=== PATIENT | female | born 1980 | race Hispanic/Latino ===

== ENCOUNTER 2020-09-18 20:04 | Emergency (ER) | payer OTHER, SELFPAY ==
[2020-09-18 23:02] LABS: Absolute Lymphocytes (CBC) 4.2 K/uL (0.7-4.9); Basophils % 1.2 % (0-1.3); Hematocrit 41.8 % (36.0-45.0); Lymphocytes % 36.9 % (15.3-44.8); MPV 8.4 fL (7.6-11.3); Protime INR 0.96; RBC Red Blood Cell Count 4.43 M/uL (3.86-4.86)
[2020-09-18 23:35] LABS: Urine Blood 2+ (NEG); Urine Glucose NEGATIVE (NEG); Urine Protein NEGATIVE (NEG); Urine Specific Gravity >1.030 (1.005-1.030); Urine pH 5.5 (5.0-7.0)
[2020-09-18 23:44] LABS: ALT/SGPT 26 U/L (12-78); AST/SGOT 14 U/L (15-37); Albumin 3.8 g/dL (3.4-5.0); Alkaline Phosphatase 79 U/L (45-117); BUN Blood Urea Nitrogen 14 mg/dL (7-18); Bicarbonate 29 mmol/L (21-32); Bilirubin Direct < 0.1 mg/dL (0-0.2); Bilirubin Total 0.3 mg/dL (0.2-1.0); Glucose Level 100 mg/dL (74-106); Magnesium 2.2 mg/dL (1.8-2.4); NT PRO-BNP 100 pg/mL (<125); Potassium 3.7 mmol/L (3.5-5.1); Protein, Total 7.9 g/dL (6.4-8.2); Sodium Level 143 mmol/L (136-145); Troponin (Emerg Dept Use Only) < 0.02 ng/mL (0.0-0.045)
[2020-09-19 00:05] LABS: T3 Free 2.82 pg/mL (2.18-3.98)
[2020-09-19] MEDS ORDERED: METOCLOPRAMIDE 10 MG/2mL INJ ONE (00:51)
[2020-09-19] MEDS ORDERED: KETOROLAC 30 MG/ML INJ ONE (00:51)
[2020-09-19 01:15] LABS: Barbiturates NEGATIVE (NEGATIVE); Benzodiazepines NEGATIVE (NEGATIVE); Cocaine NEGATIVE (NEGATIVE); METHAMPHETAM NEGATIVE (NEGATIVE); Methadone NEGATIVE (NEGATIVE); Opiates NEGATIVE (NEGATIVE); Phencyclidine NEGATIVE (NEGATIVE); THC Cannibis NEGATIVE (NEGATIVE)
--- NOTE | 2020-09-19 05:28 | ER ---
Nurse's Notes [facility] Name: Lola Rich Age: 40 yrs Sex: Female : 1980 Arrival Date: 09/18/2020 Time: 20:09 Bed 20 Private MD: Diagnosis: Palpitations;Other chest pain;Headache Presentation: 09/18 20:37 Chief complaint: Patient states: Chest heaviness x 1 week. Sharp chest pain since ca1 yesterday radiates to the L collarbone. Headache x 3 days. Today, started feeling dizzy. Denies cough. Coronavirus screen: Client denies travel out of the [place] in the last 14 days. At this time, the client does not indicate any symptoms associated with coronavirus-19. Ebola Screen: Patient negative for fever greater than or equal to 101.5 degrees Fahrenheit, and additional compatible Ebola Virus Disease symptoms Patient denies exposure to infectious person. Patient denies travel to an Ebola-affected area in the 21 days before illness onset. No symptoms or risks identified at this time. Initial Sepsis Screen: Does the patient meet any 2 criteria? No. Patient's initial sepsis screen is negative. Does the patient have a suspected source of infection? No. Patient's initial sepsis screen is negative. Risk Assessment: Do you want to hurt yourself or someone else? Patient reports no desire to harm self or others. Onset of symptoms was September 18, 2020. 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 - Social history:: Smoking status: Patient reports the use of cigarette tobacco products, smokes one-half pack cigarettes per day. Screenin:08 Abuse screen: Denies threats or abuse. Nutritional screening: No deficits noted. ll2 Tuberculosis screening: No symptoms or risk factors identified. Fall Risk None identified. Assessment: 22:05 General: Appears in no apparent distress. Behavior is calm, cooperative, appropriate ll2 for age. Pain: Complains of pain in chest. Neuro: Level of Consciousness is awake, alert, obeys commands, Oriented to person, place, time, situation. Cardiovascular: Patient's skin is warm and dry. Respiratory: Airway is patent Respiratory effort is even, unlabored, Respiratory pattern is regular, symmetrical. GI: No signs and/or symptoms were reported involving the gastrointestinal system. : No signs and/or symptoms were reported regarding the genitourinary system. EENT: No signs and/or symptoms were reported regarding the EENT system. Derm: Skin is intact, is healthy with good turgor, Skin is dry, Skin is pink, warm \T\ dry. Musculoskeletal: Circulation, motion, and sensation intact. Range of motion: intact in all extremities. 23:05 Reassessment: Patient and/or family updated on plan of care and expected duration. Pain ll2 level reassessed. Patient is alert, oriented x 3, equal unlabored respirations, skin warm/dry/pink. 09/19 00:05 Reassessment: Patient and/or family updated on plan of care and expected duration. Pain ll2 level reassessed. Patient is alert, oriented x 3, equal unlabored respirations, skin warm/dry/pink. Vital Signs: 02 20:37 BP 107 / 80; Pulse 72; Resp 16 S; Temp 97(TE); Pulse Ox 98% on R/A; Weight 97.52 kg ca1 (R); Height 5 ft. 2 in. (157.48 cm) (R); Pain 3/10; 22:30 BP 137 / 63; Pulse 115; Resp 18; Pulse Ox 94% on R/A; ll2 23:30 BP 143 / 74; Pulse 96; Resp 18; Pulse Ox 95% on R/A; ll2 20:37 Body Mass Index 39.32 (97.52 kg, 157.48 cm) ca1 ED Course: 20:09 Patient arrived in ED. am2 20:39 Triage completed. ca1 20:40 Arm band placed on right wrist. ca1 22:04 Joni Pearson PA is PHCP. cp 22:04 Óscar Stewart MD is Attending Physician. cp 22:08 Patient has correct armband on for positive identification. Placed in gown. Bed in low ll2 position. Call light in reach. Side rails up X 1. Pulse ox on. NIBP on. 22:08 No provider procedures requiring assistance completed. Inserted saline lock: 20 gauge ll2 in right antecubital area, using aseptic technique. Blood collected. 22:22 Autumn Hatch, RN is Primary Nurse. ll2 22:44 XRAY Chest (1 view) In Process Unspecified. EDMS 09/19 01:12 CT Head Brain wo Cont In Process Unspecified. EDMS 05:28 Portillo Funes MD is Referral Physician. 7 Administered Medications: 00:40 Drug: TORadol - Ketorolac 15 mg Route: IVP; Site: right antecubital; ll2 01:40 Follow up: Response: No adverse reaction ll2 00:40 Drug: Reglan 10 mg Route: IVP; Site: right antecubital; ll2 01:40 Follow up: Response: No adverse reaction ll2 Outcome: 05:28 Discharge ordered by . jonnie 05:59 Patient left the ED. ll2 Signatures: Dispatcher [employer] EDKS Joni Pearson PA PA cp Moreno, Amanda am2 Duyen Dick RN RN ca1 Autumn Hatch RN RN ll2 Óscar Stewart MD MD [facility]
--- NOTE | 2020-09-19 05:28 | EDPHYS ---
Physician Documentation [facility] Name: Lola Rich Age: 40 yrs Sex: Female : 1980 Arrival Date: 09/18/2020 Time: 20:09 Bed 20 Private MD: ED Physician Óscar Stewart HPI: 09/18 22:10 This 40 yrs old Female presents to ER via Ambulatory with complaints of cp Weakness, Chest Pain - heaviness. 22:10 The patient or guardian reports chest pain that is located primarily in the anterior cp chest wall, left. 22:10 Onset: 1 week(s) ago. The pain radiates to the left shoulder. cp 22:10 Associated signs and symptoms: Pertinent positives: headache, palpitations, Pertinent cp negatives: abdominal pain, cough, diaphoresis, lower extremity pain, lower extremity swelling, lightheadedness, shortness of breath, syncope, vomiting. The chest pain is described as started as heaviness times 1 week, now sharp. Severity of pain: in the emergency department the pain is unchanged despite home interventions. 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 - Social history:: Smoking status: Patient reports the use of cigarette tobacco products, smokes one-half pack cigarettes per day. ROS: 22:15 Constitutional: Negative for body aches, chills, fever, poor PO intake. cp 22:15 Eyes: Negative for injury, pain, redness, and discharge. cp 22:15 Cardiovascular: Positive for chest pain, palpitations, Negative for edema. 22:15 Respiratory: Negative for cough, shortness of breath, wheezing. 22:15 Abdomen/GI: Negative for abdominal pain, nausea, vomiting, and diarrhea. 22:15 Back: Negative for pain at rest, pain with movement. cp 22:15 Skin: Negative for cellulitis, rash. 22:15 Neuro: Positive for headache, Negative for altered mental status, numbness, syncope. 22:15 Neck: Positive for radiating pain, Negative for injury or acute deformity, stiffness. cp 22:15 All other systems are negative. cp Exam: 22:05 ECG was reviewed by the Attending Physician. cp 22:20 Constitutional: The patient appears in no acute distress, alert, awake, cp non-diaphoretic, non-toxic, well developed, well nourished, obese. 22:20 Head/Face: Normocephalic, atraumatic. cp 22:20 Eyes: Periorbital structures: appear normal, Conjunctiva: normal, no exudate, no injection, Sclera: no appreciated abnormality, Lids and lashes: appear normal, bilaterally. 22:20 ENT: External ear(s): are unremarkable, Nose: is normal, Mouth: Lips: moist, Oral mucosa: moist, Posterior pharynx: is normal, airway is patent, no erythema, no exudate. 22:20 Neck: ROM/movement: is normal, is supple, no meningismus, no nuchal rigidity. 22:20 Chest/axilla: Inspection: normal, Palpation: is normal, no crepitus, no tenderness. 22:20 Cardiovascular: Rate: normal, Rhythm: regular, Heart sounds: murmur, not appreciated, Edema: is not appreciated, JVD: is not appreciated. 22:20 Respiratory: the patient does not display signs of respiratory distress, Respirations: normal, no use of accessory muscles, no retractions, labored breathing, is not present, Breath sounds: are clear throughout, no decreased breath sounds, no stridor, no wheezing. 22:20 Abdomen/GI: Inspection: abdomen appears normal, Palpation: abdomen is soft and non-tender, in all quadrants. 22:20 Back: pain, that is mild, of the left scapular area, right scapular area, left subscapular area and right subscapular area, ROM is normal. 22:20 Skin: no rash present. 22:20 Neuro: Orientation: to person, place \T\ time. Mentation: is normal, Cerebellar function: is grossly normal, Motor: moves all fours, strength is normal, Sensation: is normal. Vital Signs: 20:37 BP 107 / 80; Pulse 72; Resp 16 S; Temp 97(TE); Pulse Ox 98% on R/A; Weight 97.52 kg ca1 (R); Height 5 ft. 2 in. (157.48 cm) (R); Pain 3/10; 22:30 BP 137 / 63; Pulse 115; Resp 18; Pulse Ox 94% on R/A; ll2 23:30 BP 143 / 74; Pulse 96; Resp 18; Pulse Ox 95% on R/A; ll2 20:37 Body Mass Index 39.32 (97.52 kg, 157.48 cm) ca1 MDM: 22:07 Patient medically screened. cp 23:00 Differential diagnosis: abnormal EKG, acute myocardial infarction, acute pericarditis, cp chest wall pain, cholecystitis, Cholelithiasis costochondritis, myocarditis, pericarditis, pleurisy, pneumonia, pneumothorax, pulmonary embolus, stable angina, unstable angina. 09/19 00:32 Test interpretation: by ED physician or midlevel provider: ECG, chest xray negative for cp infiltrates. 02:00 Data reviewed: vital signs, nurses notes, lab test result(s), EKG, radiologic studies, cp CT scan, plain films, I have discussed the patient's presentation/case with the attending Emergency Department Physician; and as a result, I will repeat troponin and if negative discharge patient to home with recommendation to f/u with cardiology for Holter monitor. Patient resting comfortably in exam room. 02:00 Counseling: I had a detailed discussion with the patient and/or guardian regarding: the cp historical points, exam findings, and any diagnostic results supporting the discharge/admit diagnosis, lab results, radiology results, the need for outpatient follow up, a physician practice market manager, to return to the emergency department if symptoms worsen or persist or if there are any questions or concerns that arise at home. 09/18 22:18 Order name: Basic Metabolic Panel cp 09/18 22:18 Order name: CBC with Diff cp 09/18 22:18 Order name: LFT's cp 09/18 22:18 Order name: Magnesium cp 09/18 22:18 Order name: NT PRO-BNP; Complete Time: 00:19 cp 09/18 22:18 Order name: PT-INR; Complete Time: 00:19 cp 09/18 22:18 Order name: Troponin (emerg Dept Use Only); Complete Time: 00:19 cp 09/19 00:19 Interpretation: Within normal limits: TROPED < 0.02. cp 09/18 22:19 Order name: Basic Metabolic Panel; Complete Time: 00:19 EDMS 09/19 00:19 Interpretation: Normal except: CL 110. cp / 22:19 Order name: CBC with Automated Diff; Complete Time: 23:05 EDMS 09/18 23:05 Interpretation: Normal except: WBC 11.30. cp / 22:19 Order name: Liver (Hepatic) Function; Complete Time: 00:19 EDMS 02 00:19 Interpretation: Normal except: GLOB 4.1; A/G 0.9. cp 09/18 22:19 Order name: Magnesium; Complete Time: 00:19 EDMS 09/18 22:19 Order name: TSH; Complete Time: 00:19 cp 09/19 00:20 Interpretation: Within normal limits: TSH 3.490. cp 09/18 22:19 Order name: T3 Free; Complete Time: 00:19 cp 09/19 00:20 Interpretation: Within normal limits: T3F 2.82. cp 09/18 20:42 Order name: EKG; Complete Time: 20:42 ca1 09/18 20:42 Order name: EKG - Nurse/Tech; Complete Time: 20:42 ca1 09/18 22:18 Order name: XRAY Chest (1 view) cp 09/18 22:18 Order name: Cardiac monitoring; Complete Time: 23:00 cp 09/18 22:18 Order name: IV Saline Lock; Complete Time: 23:00 cp 09/18 22:18 Order name: Labs collected and sent; Complete Time: 23:00 cp 09/18 22:18 Order name: O2 Per Protocol; Complete Time: 23:00 cp 09/18 22:18 Order name: O2 Sat Monitoring; Complete Time: 23:00 cp 09/18 22:19 Order name: UDS; Complete Time: 01:55 cp 09/18 23:15 Order name: Urine Dipstick--Ancillary (enter results); Complete Time: 00:19 tt3 09/18 23:15 Order name: Urine --Ancillary (enter results); Complete Time: 00:19 tt3 09/19 00:21 Order name: CT Head Brain wo Cont cp 09/19 00:37 Order name: SARS-COV-2 RT PCR; Complete Time: 01:55 EDMS 09/19 01:30 Order name: Troponin I; Complete Time: 05:20 cp 09/18 22:19 Order name: Urine Test (obtain specimen); Complete Time: 23:15 cp 09/18 22:19 Order name: Urine Dipstick-Ancillary (obtain specimen); Complete Time: 23:15 cp EC/06 22:05 Rate is 76 beats/min. Rhythm is regular. W[place] interval is normal. QRS interval is normal. cp QT interval is normal. T waves are Flattened in lead aVL. Interpreted by me. Reviewed by me. Administered Medications: 09/19 00:40 Drug: TORadol - Ketorolac 15 mg Route: IVP; Site: right antecubital; ll2 01:40 Follow up: Response: No adverse reaction ll2 00:40 Drug: Reglan 10 mg Route: IVP; Site: right antecubital; ll2 01:40 Follow up: Response: No adverse reaction 2 Disposition: 09/20 05:12 Co-signature as Attending Physician, Óscar Stewart MD. [email or web address] Disposition: 09/19/20 05:28 Discharged to Home. Impression: Palpitations, Other chest pain, Headache. - Condition is Stable. - Discharge Instructions: Nonspecific Chest Pain, Migraine Headache, Palpitations, Aspirin and Your Heart. - Prescriptions for Naprosyn 500 mg Oral Tablet - take 1 tablet by ORAL route 2 times per day take with food; 20 tablet. - Medication Reconciliation Form, Thank You Letter, Antibiotic Education, Prescription Opioid Use form. - Follow up: Portillo Funes; When: 2 - 3 days; Reason: Recheck today's complaints. - Problem is new. - Symptoms have improved. Signatures: Dispatcher [employer] [facility] Joni Pearson PA PA cp Acob, Cheryl, RN RN ca1 Autumn Hatch RN RN 2 Óscar Stewart MD MD [email or web address] Corrections: (The following items were deleted from the chart) 09/18 23:14 22:19 CORONAVIRUS+MR.LAB.BRZ ordered. [facility] 09/19 05:59 05:28 09/19/2020 05:28 Discharged to Home. Impression: Palpitations; Other chest pain; ll2 Headache. Condition is Stable. Discharge Instructions: Nonspecific Chest Pain, Migraine Headache, Palpitations, Aspirin and Your Heart. Prescriptions for Naprosyn 500 mg Oral Tablet - take 1 tablet by ORAL route 2 times per day take with food; 20 tablet. and Forms are Medication Reconciliation Form, Thank You Letter, Antibiotic Education, Prescription Opioid Use. Follow up: Portillo Funes; When: 2 - 3 days; Reason: Recheck today's complaints. Problem is new. Symptoms have improved. [email or web address] 22:43 09/18 22:15 All other systems are negative, cp cp
[2020-09-19 06:04] VITALS: TEMP 97
[2020-09-19 06:07] VITALS: BP 143/74; O2SAT 95
--- NOTE | 2020-09-19 12:28 | RAD REPORT ---
EXAM DESCRIPTION: RAD - Chest Single View - 09/18/2020 10:44 pm CLINICAL HISTORY: CHEST PAIN Chest pain. COMPARISON: No comparisons FINDINGS: Portable technique limits examination quality. The lungs are grossly clear. The heart is normal in size. No displaced fractures. IMPRESSION: No acute intrathoracic process suspected.
--- NOTE | 2020-09-20 11:39 | RAD REPORT ---
EXAM DESCRIPTION: CT of the head without contrast CLINICAL HISTORY: HEADACHE COMPARISON: None available TECHNIQUE: Axial CT of the head obtained from the skull apex to the skull base without contrast. FINDINGS: No acute intracranial hemorrhage identified. No mass, mass effect, shift of the midline, a bnormal extra-axial fluid collection or CT evidence of acute ischemic change identified. The ventricu lar system is unremarkable. No acute abnormalities of the supratentorial white matter, basal gangli a, cerebellum, or brainstem. The visualized paranasal sinuses and the mastoid air cells are relatively well aerated. No skull fr acture identified. Visualized orbits and globes are unremarkable. IMPRESSION: 1. No acute intracranial abnormality identified. This exam was performed according to our departmental dose-optimization program, which includes autom ated exposure control, adjustment of the mA and/or kV according to patient size and/or use of iterati ve reconstruction technique. Electronically signed by: Lonnie Martinez 09/19/2020 1:26 AM SCHOOL SUPERINTENDENT Due to temporary technical issues with the PACS/Fluency reporting system, reports are being signed by the in house radiologist without review as a courtesy to ensure prompt reporting. The interpreting r adiologist is fully responsible for the content of the report.
== END 2020-09-19 05:59 | disposition home or self-care (01) ==
LOC: ER 20:04
DX: R00.2 Palpitations (principal); R51.9 Headache, unspecified; F17.210 Nicotine dependence, cigarettes, uncomplicated; Z20.822 Contact with and (suspected) exposure to COVID-19; Z88.6 Allergy status to analgesic agent
CPT/HCPCS: 93005; 85025; 80048; 36415; 83735; 81025; 85610; 80076; 80307 ×8; 84443; 81003; 84484 ×2; 84481; 83880; 70450; 71045; 96375; 96374; 99284; U0003; J2765

== ENCOUNTER 2022-12-11 11:51 | Emergency (ER) | payer OTHER ==
--- OUTSIDE RECORDS SUMMARY | 2022-12-11 11:56 | XMS REPORT | Continuity of Care Document ---
:1980 Author Organization [facility] t Address [address] [place] [address] [place] [id number] Care Team Providers Name Role Phone Meghan Dudley Primary Care Physician Gali Castañeda MD Attending Clinician Unknown, Attending Attending Clinician Unavailable GALI CASTAÑEDA Attending Clinician Unavailable Doctor Unassigned, Calvin Attending Clinician Unavailable NEETU BONILLA Attending Clinician Unavailable NEETU BONILLA Attending Clinician Unavailable Lab, Ang - Db Attending Clinician Unavailable Mayte Puri Attending Clinician MAYTE BORRERO Attending Clinician Unavailable James Hooker MD Attending Clinician Lanette Perdomo Attending Clinician LANETTE GREGORY Attending Clinician Unavailable NEETU BONILLA Admitting Clinician Unavailable Payers Payer Name Policy Type Policy Number Effective Date Expiration Date S ource Problems Condition Condition Condition Status Onset Resolution Last Treating Co mments Source Name Details Category Date Date Treatment Clinician Date No known No known Disease Unive rs active active ity of problems problems [place] [facility] [place] Allergies, Adverse Reactions, Alerts Allergy Allergy Status Severity Reaction(s) Onset Inactive Treating Comm ents Source Name Type Date Date Clinician Acetamin Propensi Active Unknown - Uni vers ophen ty to See comments 03-02 ity of adverse 00:00: [place] reaction 00 Medical s Branch ACETAMIN DRUG Active Unknown-Cmnt Un nima OPHEN INGREDI 7-21 ity of 00:00: [place] [address] Medical Branch NO KNOWN Drug Active Univers ALLERGIE Class ity of S [facility] Social History Social Habit Start Date Stop Date Quantity Comments Source History of tobacco Cigarette Smoker University of use [facility] Exposure to 2022-11-05 2022-11-15 Not sure [facility] SARS-CoV-2 (event) 00:00:00 09:24:00 [facility] Alcohol intake 2022-11-15 2022-11-15 .43 /d University 00:00:00 00:00:00 [facility] Cigarette 2022-06-07 2022-06-07 University of pack-years 00:00:00 00:00:00 [facility] Tobacco use and 2022-06-07 2022-06-07 Smokeless Universit y of exposure 00:00:00 00:00:00 tobacco non-user [facility] Cigarettes smoked 2022-06-07 2022-06-07 Univers ity of current (pack per 00:00:00 00:00:00 [facility] ) - Reported Branch Sex Ass[birth year] At [birth year] Universit y of 00:00:00 00:00:00 [facility] Smoking Status Start Date Stop Date Source Unknown if ever smoked Universit y of [facility] Smokes tobacco daily 2022-06-07 00:00:00 Univers ity of [facility] Never smoker [facility] Medications Ordered Filled Start Stop Current Ordering Indication Dosage Frequency Signature Comments Components Source Medication Medication Date Date Medication? Clinician (SIG) Name Name bromphenira Yes [id number] 10mL Take 10 mL Univers mine-pseudo 4-05 by mouth 4 it y of ephedrine-D 00:00[place] ([place] (BROMF[place] 00 times Medical DM) 2-30-10 daily as Bran ch mg/5 mL needed for syrup Congestion /Allergies . benzonatate Yes [id number] 200mg Take 2 Univers 100 mg 4-05 capsules ity of capsule 00:00: by mouth [place] [address] every 8 Medical (eight) Branch hours as needed for Cough. bromphenira Yes [id number] 10mL Take 10 mL Univers mine-pseudo 4-05 by mouth 4 it y of ephedrine-D 00:00: (four[place] (BROMFED 00 times Medical DM) 2-30-10 daily as Bran ch mg/5 mL needed for syrup Congestion /Allergies . benzonatate Yes [id number] 200mg Take 2 Univers 100 mg 4-05 capsules ity of capsule 00:00: by mouth [place] 00 every 8 Medical (eight) Branch hours as needed for Cough. metroNIDAZO 2021-08- No [id number] 500mg Take 1 Univers LE 500 mg 0-28 11-05 tablet by ity of tablet 00:00: 04:59 mouth [place] 00 :00 every 12 Medical (twelve) Branch hours for 7 days. metroNIDAZO 2021-08- No [id number] 500mg Take 1 Univers LE 500 mg 0-28 11-05 tablet by ity of tablet 00:00: 04:59 mouth [place] 00 :00 every 12 Medical (twelve) Branch hours for 7 days. mupirocin 2 2021-08 Yes [id number] Apply to Univers % ointment 0-26 area(s) 3 ity of 00:00: (three) [place] 00 times Medical daily. Branch norethindro 2021-08 Yes [id number] .35mg Take 1 Univers ne (ORTHO 0-26 tablet by ity o f MICRONOR) 00:00: mouth [place] 0.35 mg 00 the Medical tablet morning. Branch mupirocin 2 2021-08 Yes [id number] Apply to Univers % ointment 0-26 area(s) 3 ity of 00:00: (three) [place] 00 times Medical daily. Branch norethindro 2021-08 Yes [id number] .35mg Take 1 Univers ne (ORTHO 0-26 tablet by ity o f MICRONOR) 00:00: [place] 0.35 mg 00 the Medical tablet morning. Branch mupirocin 2 2021-08 Yes [id number] Apply to Univers % ointment 0-26 area(s) 3 ity of 00:00: (three) [place] 00 times Medical daily. Branch norethindro 2021-08 Yes [id number] .35mg Take 1 Univers ne (ORTHO 0-26 tablet by ity o f MICRONOR) 00:00: mouth [place] 0.35 mg 00 the Medical tablet morning. Branch mupirocin 2 2021-08 Yes [id number] Apply to Univers % ointment 0-26 area(s) 3 ity of 00:00: (three) [place] 00 times Medical daily. Branch norethindro 2021-08 Yes [id number] .35mg Take 1 Univers ne (ORTHO 0-26 tablet by ity o f MICRONOR) 00:00: mouth [place] 0.35 mg 00 the Medical tablet morning. Branch mupirocin 2 2021-08 Yes [id number] Apply to Univers % ointment 0-26 area(s) 3 ity of 00:00: (three) [place] 00 times Medical daily. Branch norethindro 2021-08 Yes [id number] .35mg Take 1 Univers ne (ORTHO 0-26 tablet by ity o f MICRONOR) 00:00: mouth [place] 0.35 mg 00 the Medical tablet morning. Branch mupirocin 2 2021-08 Yes [id number] Apply to Univers % ointment 0-26 area(s) 3 ity of 00:00: (three) [place] 00 times Medical daily. Branch utethindro 2021-08 Yes [id number] .35mg Take 1 Univers ne (ORTHO 0-26 tablet by ity o f MICRONOR) 00:00: mouth [place] 0.35 mg 00 the Medical tablet morning. Branch mupirocin 2 2021-08 Yes [id number] Apply to Univers % ointment 0-26 area(s) 3 ity of 00:00: (three) [place] 00 times Medical daily. Branch utethindro 2021-08 Yes [id number] .35mg Take 1 Univers ne (ORTHO 0-26 tablet by ity o f MICRONOR) 00:00: mouth [place] 0.35 mg 00 the Medical tablet morning. Branch mupirocin 2 2021-08 Yes [id number] Apply to Univers % ointment 0-26 area(s) 3 ity of 00:00: (three) [place] 00 times Medical daily. Branch norethindro 2021-08 Yes [id number] .35mg Take 1 Univers ne (ORTHO 0-26 tablet by ity o f MICRONOR) 00:00: mouth [place] 0.35 mg 00 the Medical tablet morning. Branch mupirocin 2 2021-08 Yes [id number] Apply to Univers % ointment 0-26 area(s) 3 ity of 00:00: (three) [place] 00 times Medical daily. Branch norethindro 2021-08 Yes [id number] .35mg Take 1 Univers ne (ORTHO 0-26 tablet by ity o f MICRONOR) 00:00: mouth [place] 0.35 mg 00 the Medical tablet morning. Branch ondansetron 2021- No [id number] 4mg U nivers (ZOFRAN-ODT 5-30 05-30 ity of ) 23:00: 21:59 [place] disintegrat 00 :00 Medical ing tablet Branch 4 mg ondansetron 2021- No [id number] 4mg 4 mg, Univers (ZOFRAN-ODT 5-30 05-30 Oral, ity of ) 23:00: 21:59 ONCE, 1 [place] disintegrat 00 :00 dose, On Medi geo ing tablet Mon Branch 4 mg 01/09/22 at 1800, Routine ondansetron Yes [id number] 4mg Take 1 Univers 4 mg 5-30 tablet by ity of disintegrat 00:00: mouth [place] ing tablet 00 every 8 Medica l (eight) Branch hours as needed for Nausea and Vomiting (N/V). ondansetron Yes [id number] 4mg Take 1 Univers 4 mg 5-30 tablet by ity of disintegrat 00:00: mouth [place] ing tablet 00 every 8 Medica l (eight) Branch hours as needed for Nausea and Vomiting (N/V). ondansetron Yes [id number] 4mg Take 1 Univers 4 mg 5-30 tablet by ity of disintegrat 00:00: mouth [place] ing tablet 00 every 8 Medica l (eight) Branch hours as needed for Nausea and Vomiting (N/V). ondansetron Yes [id number] 4mg Take 1 Univers 4 mg 5-30 tablet by ity of disintegrat 00:00: mouth [place] ing tablet 00 every 8 Medica l (eight) Branch hours as needed for Nausea and Vomiting (N/V). ondansetron Yes [id number] 4mg Take 1 Univers 4 mg 5-30 tablet by ity of disintegrat 00:00: mouth [place] ing tablet 00 every 8 Medica l (eight) Branch hours as needed for Nausea and Vomiting (N/V). ondansetron 2021-0 Yes [id number] 4mg Take 1 Univers 4 mg 5-30 tablet by ity of disintegrat 00:00: mouth [place] ing tablet 00 every 8 Medica l (eight) Branch hours as needed for Nausea and Vomiting (N/V). ondansetron 2021-0 Yes [id number] 4mg Take 1 Univers 4 mg 5-30 tablet by ity of disintegrat 00:00: mouth [place] ing tablet 00 every 8 Medica l (eight) Branch hours as needed for Nausea and Vomiting (N/V). ondansetron 2021-0 Yes [id number] 4mg Take 1 Univers 4 mg 5-30 tablet by ity of disintegrat 00:00: mouth [place] ing tablet 00 every 8 Medica l (eight) Branch hours as needed for Nausea and Vomiting (N/V). ondansetron 2021-0 Yes [id number] 4mg Take 1 Univers 4 mg 5-30 tablet by ity of disintegrat 00:00: mouth [place] ing tablet 00 every 8 Medica l (eight) Branch hours as needed for Nausea and Vomiting (N/V). ondansetron 2021-0 Yes [id number] 4mg Take 1 Univers 4 mg 5-30 tablet by ity of disintegrat 00:00: mouth [place] ing tablet 00 every 8 Medica l (eight) Branch hours as needed for Nausea and Vomiting (N/V). ondansetron 2021-0 Yes [id number] 4mg Take 1 Univers 4 mg 5-30 tablet by ity of disintegrat 00:00: mouth [place] ing tablet 00 every 8 Medica l (eight) Branch hours as needed for Nausea and Vomiting (N/V). sulfamethox 2021-0 2021- No [id number] 1{tbl} Take 1 Univers azole-trime 5-30 - tablet by it y of thoprim 00:00: 04:59 mouth 2 [place] (BACTRIM 00 :00 (two) Medical DS) 800-160 times Branch mg per daily for tablet 3 days. cephALEXin 0 2020- No [id number] 500mg Take 1 Univers 500 mg 7-02 03- tablet by ity of tablet 00:00: 04:59 mouth 2 [place] 00 :00 (two) Medical times Branch daily for 7 days. May use capsules Vital Signs Vital Name Observation Time Observation Value Comments Source Systolic blood 2022-11-15 14:32:00 128 mm[Hg] Univer sity of pressure [place] [facility] Diastolic blood 2022-11-15 14:32:00 85 mm[Hg] Unive rsity of pressure [place] [facility] Heart rate 2022-11-15 14:32:00 77 /min Universi ty of [place] [facility] Body temperature 2022-11-15 14:32:00 36.83 Destiny Univ ersity of [place] [facility] Respiratory rate 2022-11-15 14:32:00 17 /min Univ ersity of [place] [facility] Body weight 2022-11-15 14:32:00 97.523 kg Universi ty of [place] [facility] BMI 2022-11-15 14:32:00 39.32 kg/m2 Universi ty of [place] [facility] Oxygen saturation in 2022-11-15 14:32:00 97 /min University of Arterial blood by [place] [facility] geo Pulse oximetry Branch Systolic blood 2022-06-07 13:59:00 126 mm[Hg] Univer sity of pressure [place] [facility] Diastolic blood 2022-06-07 13:59:00 83 mm[Hg] Unive rsity of pressure [place] [facility] Heart rate 2022-06-07 13:59:00 67 /min Universi ty of [place] [facility] Body temperature 2022-06-07 13:59:00 36.72 Destiny Univ ersity of [place] [facility] Respiratory rate 2022-06-07 13:59:00 16 /min Univ ersity of [place] [facility] Body height 2022-06-07 13:59:00 157.5 cm Universi ty of [place] [facility] Body weight 2022-06-07 13:59:00 96.752 kg Universi ty of [place] [facility] BMI 2022-06-07 13:59:00 39.01 kg/m2 Universi ty of [place] [facility] Oxygen saturation in 2022-06-07 13:59:00 96 /min University of Arterial blood by [place] [facility] geo Pulse oximetry Branch Systolic blood 2022-01-09 21:52:00 131 mm[Hg] Univer sity of pressure [place] [facility] Diastolic blood 2022-01-09 21:52:00 83 mm[Hg] Unive rsity of pressure [place] [facility] Heart rate 2022-01-09 21:52:00 74 /min Universi ty of [place] [facility] Body temperature 2022-01-09 21:52:00 36.67 Destiny Univ ersity of [place] [facility] Respiratory rate 2022-01-09 21:52:00 18 /min Univ ersity of [place] [facility] Body height 2022-01-09 21:52:00 157.5 cm Universi ty of [place] [facility] Body weight 2022-01-09 21:52:00 93.895 kg Universi ty of [place] [facility] BMI 2022-01-09 21:52:00 37.86 kg/m2 Universi ty of [place] [facility] Oxygen saturation in 2022-01-09 21:52:00 98 /min University of Arterial blood by [facility] Pulse oximetry Branch Systolic blood 2021-03-02 23:40:00 119 mm[Hg] Univer sity of pressure [place] [facility] Diastolic blood 2021-03-02 23:40:00 71 mm[Hg] Unive rsity of pressure [place] [facility] Heart rate 2021-03-02 23:40:00 77 /min Universi ty of [place] [facility] Body temperature 2021-03-02 23:40:00 37 Destiny [facility] ersity of [place] [facility] Respiratory rate 2021-03-02 23:40:00 16 /min Univ ersity of [place] [facility] Body height 2021-03-02 23:40:00 157.5 cm Universi ty of [place] [facility] Body weight 2021-03-02 23:40:00 95.255 kg Universi ty of [place] [facility] BMI 2021-03-02 23:40:00 38.41 kg/m2 Universi ty of [place] [facility] Oxygen saturation in 2021-03-02 23:40:00 99 /min University of Arterial blood by [facility] Pulse oximetry Branch Procedures Procedure Date / Time Performing Clinician Source Performed POCT SARS-COV-2 ANTIGEN 2022-11-15 14:28:00 Gali Castañeda [facility] (BINAX NOW) Medical Branch [facility] PATIENT FINANCIAL 2022-11-15 14:25:24 Doctor Unassigned, No University [facility] [place] [facility] POLICY Name Medical Branch US PELVIS COMPLETE WITH 2022-06-13 22:31:15 Neetu Bonilla [facility] TRANSVAGINAL [facility] ASSIGNMENT OF BENEFITS 2022-06-07 13:40:46 Doctor Unassigned, No [facility] POCT TEST 2022-06-07 00:00:00 Neetu Bonilla [facility] POCT TEST 2022-01-09 22:02:00 Gali Castañeda [facility] POCT URINALYSIS 2022-01-09 21:52:00 Mayte Borrero [facility] ASSIGNMENT OF BENEFITS 2021-03-02 23:37:08 Doctor Unassigned, No [facility] Encounters Start End Encounter Admission Attending Care Care Encounter Source Date/Time Date/Time Type Type Clinicians Facility Department ID 2022-11-15 2022-11-15 Gali Oliveira [facility] 1.2.840.114 [id number] Univers 09:40:00 09:54:29 Care Unknown, Attending HEALTH 350.1.13.10 ity of [place] 4.2.7.2.686 [place] TANVI?BLEA [id number] [address] MEDICAL OFFICE BUILDING 2022-11-15 2022-11-15 Outpatient R GARRY [facility] [id number] Univers 09:40:00 09:54:29 [facility] 2022-11-15 2022-11-15 Orders Doctor SANDHU 1.2.840.114 [id number] Univers 00:00:00 00:00:00 Only Unassigned, DANTE 350.1.13.10 [facility] 4.2.7.2.686 [place] [id number] [address] 2022-11-15 2022-11-15 Letter Garry [facility] 1.2.840.114 [id number] Univers 00:00:00 00:00:00 (Out) [facility] 350.1.13.10 it y of [place] 4.2.7.2.686 [place] TANVI?BLEA [id number] [address] MEDICAL OFFICE BUILDING 2022-07-13 2022-07-13 Outpatient R NEETU BONILLA [facility] B [id number] Univers 08:57:37 23:59:00 ERIKNEETU BERGMAN itvioletta [facility] 2022-07-13 2022-07-13 [facility] 1.2.840.114 [id number] Univers 08:57:37 23:59:00 Encounter Neetu GUZMAN 350.1.13.10 [facility]y [facility] 4.2.7.2.686 [facility] [id number] [facility] 800 Branch 2022-06-13 2022-06-13 Outpatient R NEETU BONILLA [facility] B [id number] Univers 16:28:56 23:59:00 ERIKNEETU BERGMAN [facility] 2022-06-13 2022-06-13 [facility] 1.2.840.114 [id number] Univers 16:28:56 23:59:00 Encounter Neetu PARKERTON 350.1.13.10 [facility]y [facility] 4.2.7.2.686 [facility] [id number] [facility] [address] [place] 2022-06-09 2022-06-09 Telephone [facility] 1.2.840.11 [id number] Univers 00:00:00 00:00:00 Neetu THALIA 350.1.13.10 it y of [place] 4[place]2.[place].2.[place] [id number] [facility] 134 Branch 2022-06-08 2022-06-08 [facility], Ang - Db [facility] 1.2.840.1 [id number] Univers 09:00:00 09:15:00 Visit ErikNeetu bergman 350.1.13.1 0 ity [facility] 4.2.7.2.686 [place] TANVI?BLEA [id number] [address] MEDICAL OFFICE BUILDING 2022-06-08 2022-06-08 Outpatient R NEETU BONILLA [facility] B [id number] Univers 09:00:00 09:00:00 ERIKNEETU BERGMAN itvioletta [facility] 2022-06-07 2022-06-07 Outpatient R NEETU BONILLA [facility] B [id number] Univers 09:00:00 11:08:32 NEETU BONILLA itvioletta [facility] 2022-06-07 2022-06-07 Office Lynne [facility] RAIMUNDO 1.2.840.114 [id number] Univers 09:00:00 09:30:00 Visit Neetu VÁSQUEZ 350.1.13.10 it y of [place] 4.2.7.2.686 [place] [facility] [id number] [facility] 134 Branch 2022-06-07 2022-06-07 Orders Doctor EDSON 1.2.840.114 [id number] Univers 00:00:00 00:00:00 Only Unassigned, DANTE 350.1.13.10 ity of Calvin [facility] 4.2.7.2.686 [place] [id number] [facility] 009 Branch 2022-01-09 2022-01-09 [facility] [id number] Univers 16:20:00 16:59:54 GALI molly [facility] 2022-01-09 2022-01-09 Urgent Stanley Castañedaanda [facility] 1.2.840.114 [id number] Univers 16:20:00 16:59:54 Care Gissell, Mayte HEALTH 350.1.13.10 ity of [place] 4.2.7.2.686 [place] TANVI?BLEA [id number] Sc mary jo BLANCA [address] MEDICAL OFFICE BUILDING 2022-01-09 2022-01-09 Outpatient R GISSELL [facility] [id number] Univers 16:20:00 16:20:00 MAYTE ity o f [facility] 2021-03-02 2021-03-02 Urgent James Hooker [facility] 1.2.840.11 [id number] Univers 18:37:25 18:57:25 Shonda Gregory Lanette [facility] 350.1.13.10 ity of [place] 4.2.7.2.686 [place] Professio [id number] Sc mary jo hansen [address] 2021-03-02 2021-03-02 Outpatient R BRI [facility] [id number] Univers 18:40:00 18:40:00 LANETTE ity of [facility] 2021-03-02 2021-03-02 Letter Doctor EDSON 1.2.840.114 [id number] Univers 00:00:00 00:00:00 (Out) Unassigned, DANTE 350.1.13.10 ity of [place] HOSPITAL 4.2.7.2.686 [place] [id number] [facility] [address] [place] 2021-03-02 2021-03-02 Letter Doctor EDSON 1.2.840.114 [id number] Univers 00:00:00 00:00:00 (Out) Unassigned, DANTE 350.1.13.10 ity of [place] HOSPITAL 4.2.7.2.686 [place] [id number] [address] 2021-03-02 2021-03-02 Orders Doctor EDSON 1.2.840.114 [id number] Univers 00:00:00 00:00:00 Only Unassigned, DANTE 350.1.13.10 ity of [place] HOSPITAL 4.2.7.2.686 [place] [id number] [address] Results Test Description Test Time Test Comments Results Result Comments Source POCT SARS-COV-2 ANTIGEN (BINAX NOW) 2022-11-15 14:43:00 Test Item Value Reference Range Interpretation Comme nts POCT SARS-COV-2 ANTIGEN (test code = 02243-0) Not Detected Not Dete cted On board controls acceptable with C Line (test code = Yes 3574) Lab Interpretation (test code = 61297-4) Normal [facility] [id number] 14:49:00 Test Item Value Reference Range Interpretation Comments POCT PREG (test code = Negative prior test this visit 1605) entered in erro r this is correct resu lt On board controls Yes acceptable with C Line (test code = 3574) POCT PREG LOT # (test code = 3575) POCT PREG TEST DATE (test code = 3576) [facility] [id number] 14:49:00 Test Item Value Reference Range Interpretation Comments POCT PREG (test code = Negative prior test this visit 1605) entered in erro r this is correct resu lt On board controls Yes acceptable with C Line (test code = 3574) POCT PREG LOT # (test code = 3575) POCT PREG TEST DATE (test code = 3576) [facility] [id number] 14:43:00 Test Item Value Reference Range Interpretation Comments POCT PREG (test code = 1605) Positive On board controls acceptable with C Yes Line (test code = 3574) POCT PREG LOT # (test code = 3575) POCT PREG TEST DATE (test code = 3576) [facility] [id number] 14:43:00 Test Item Value Reference Range Interpretation Comments POCT PREG (test code = 1605) Positive On board controls acceptable with C Yes Line (test code = 3574) POCT PREG LOT # (test code = 3575) POCT PREG TEST DATE (test code = 3576) [facility] [id number] 22:02:00 Test Item Value Reference Range Interpretation Comments POCT PREG (test code = 1605) Negative On board controls acceptable with C Yes Line (test code = 3574) POCT PREG LOT # (test code = 3575) POCT PREG TEST DATE (test code = 3576) [facility] URINALYSIS W SPECIFIC [id number] 21:53:00 Test Item Value Reference Range Interpretation Comments POCT U SP GRAV (test code = 1.020 mg/dl 1.005-1.025 5) POCT PH U (test code = 3254) 6.0 mg/dl 5-8 POCT U LEUK EST (test code = + Negative - Negative 3) POCT U NIT (test code = 3262) Neg Negative - Negative POCT U PROT (test code = Neg Negative - Negative 9) POCT U GLU (test code = 3256) Neg Negative - Negative POCT U KETONE (test code = Neg Negative - Negative 8) POCT U UROBILI (test code = Neg 0.2-1 0) POCT U BILI (test code = Neg Negative - Negative 1) POCT U BLD (test code = 3257) about 250 Negative - Negative POCT U COLOR (test code = Maryann 3266) POCT U APPEAR (test code = Cloudy 3267) [facility] (COVID-19), RT-PCR/[id number] 15:37:50 Test Item Value Reference Interpretation Comments Range SARS-CoV-2 POSITIVE SEE NOTE A SARS-CoV-2 RNA INTERPRETATION DETECTEDPosit ruth results (test code = 11323) are olvin cative of the presence of FRANCISCA S-CoV-2 RNA;clinical co rrelation with patient hi story and other diagnosticinfor mation is necessary to de termine patient infecti on status.Positive results do not rule out bacterial infection or co-infectionwit h other viruses. Positi ve and negative predic tive values oftestin g are highly dependen t on prevalence. SOURCE (test code = NOT SPECIFIED Note: [place] [address]) Kia Ph[employer]ong Adri l-Time RT-PCR. The exp ected result or refer ence range is NEGATIVE (No t Detected). For more information reg arding COVID-19 testin g to include clinicalinforma tion, methodology det ail, intended use, F DA authorization andrecommended fact sheets for rubén ents or healthcare prov iders, see NewTest Announc ement: SARS-CoV-2 (COV ID-19) by NAAT at URL bel ow (note,fact shee ts are provided by met hod given in report:https:// www.[employer]/clinician s/client-c ommunications/ Alternatively, see downloadable PD F fact sheet at:https://www. Delight.co m/[email or web address]-IX-P CR UNLESS OTHERWISE INDIC ATED, ALL TESTING PERFORM ED ATCLINICAL PATH OLOGY LABORATORIES, [place]. [address] [facility] [place] [address] LABORATORY DIRE CTOR: Lakisha SCHAFFER. CLIA NUMBER [id number] CAP ACCREDITATION N O. [id number]
[2022-12-11] MEDS ORDERED: KETOROLAC 30 MG/ML INJ ONE (12:17)
[2022-12-11] MEDS ORDERED: NA CHLORIDE 0.9% 1,000 ML ONE (12:17)
[2022-12-11] MEDS ORDERED: DIPHENHYDRAMINE 50 MG/ML VIAL ONE (12:17)
[2022-12-11] MEDS ORDERED: METOCLOPRAMIDE 10 MG/2mL INJ ONE (12:17)
[2022-12-11] MEDS ORDERED: NA CHLORIDE 0.9% 50 ML ONE (12:18)
[2022-12-11 12:56] LABS: Absolute Lymphocytes (CBC) 2.6 K/uL (0.7-4.9); Hematocrit 41.4 % (36.0-45.0); Lymphocytes % 25.6 % (15.3-44.8); MCV 93.1 fL (80-100); MPV 7.6 fL (7.6-11.3); RBC Red Blood Cell Count 4.45 M/uL (3.86-4.86)
[2022-12-11 13:16] LABS: Albumin 3.7 g/dL (3.4-5.0); Bilirubin Total 0.5 mg/dL (0.2-1.0); Potassium 3.8 mEq/L (3.5-5.1)
--- NOTE | 2022-12-11 15:07 | RAD REPORT ---
EXAM DESCRIPTION: CT - Head Brain Wo Cont - 12/11/2022 2:01 pm CLINICAL HISTORY: HEADACHE COMPARISON: Head angio dated 12/11/2022; Head Brain Wo Cont dated 09/19/2020 TECHNIQUE: Noncontrast head CT images ad were obtained without IV contrast. Multiplanar reformats we re generated and reviewed. All CT scans are performed using dose optimization technique as appropriate and may include automated exposure control or mA/KV adjustment according to patient size. FINDINGS: No intracranial hemorrhage, mass, or edema. Midline structures are unremarkable. Normal ventricular caliber for age. Focus of hypoattenuation in the right centrum semiovale, more prominent than on the prior exam. Harper- white matter differentiation otherwise is preserved, without evidence of acute infarct. No abnormal e xtra-axial fluid collections. Mastoid air cells are well aerated. Complete right frontal and maxillary sinus opacification. No acute bony findings. IMPRESSION: Right centrum semiovale focus of hypoattenuation, more prominent than on the prior exam, could reflect a small remote infarct of indeterminate age. No other evidence of an acute intracranial process.
--- NOTE | 2022-12-11 15:18 | RAD REPORT ---
EXAM DESCRIPTION: CT - Head angio - 12/11/2022 2:05 pm CLINICAL HISTORY: HEADACHE COMPARISON: Head Brain Wo Cont dated 09/19/2020 TECHNIQUE: Axial CT angiography images of the head was performed with multiplanar and maximum intens ity projection reconstructions. Images performed following intravenous administration of 100mL Isovue 370. All CT scans are performed using dose optimization technique as appropriate and may include automated exposure control or mA/KV adjustment according to patient size. FINDINGS: No evidence of large vessel occlusion. No evidence of aneurysm or dissection flap is detec vinod. No flow-limiting stenosis or vascular malformation identified. Antegrade flow is seen in the vertebral arteries. The vertebral arteries are codominant. The visualized dural venous sinuses are grossly patent. IMPRESSION: No evidence of large vessel occlusion or flow-limiting stenosis.
--- NOTE | 2022-12-11 15:31 | EDPHYS ---
Physician Documentation [facility] Name: Lola Rich Age: 42 yrs Sex: Female : 1980 Arrival Date: 12/11/2022 Time: 11:51 Bed 14 Private MD: POLLY Physician Joni Kelly HPI: 12/11 13:44 This 42 yrs old Female presents to ER via Ambulatory with complaints of francisco Headache, Nausea. 13:44 The patient complains of pain to the forehead and right eye. The patient describes the francisco headache as constant. Onset: The symptoms/episode began/occurred today. Associated signs and symptoms: Pertinent positives: nausea. Severity of symptoms: At its worst the pain was moderate, in the emergency department the pain is unchanged. Headache History: The patient has had previous headaches and this one is similar to previous episodes. The symptoms are alleviated by nothing. the symptoms are aggravated by nothing. The patient has experienced similar episodes in the past, multiple times. 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 - Social history:: Smoking status: Patient reports the use of cigarette tobacco products, smokes one pack cigarettes per day. ROS: 13:48 Constitutional: Negative for fever, chills, and weight loss, Eyes: Negative for injury, francisco pain, redness, and discharge, ENT: Negative for injury, pain, and discharge, Neck: Negative for injury, pain, and swelling, Cardiovascular: Negative for chest pain, palpitations, and edema, Respiratory: Negative for shortness of breath, cough, wheezing, and pleuritic chest pain, Abdomen/GI: Negative for abdominal pain, nausea, vomiting, diarrhea, and constipation, Back: Negative for injury and pain, : Negative for injury, bleeding, discharge, and swelling, MS/Extremity: Negative for injury and deformity, Skin: Negative for injury, rash, and discoloration, Psych: Negative for depression, anxiety, suicide ideation, homicidal ideation, and hallucinations, Allergy/Immunology: Negative for hives, rash, and allergies, Endocrine: Negative for neck swelling, polydipsia, polyuria, polyphagia, and marked weight changes. 13:48 Neuro: Positive for headache. Exam: 13:48 Constitutional: This is a well developed, well nourished patient who is awake, alert, francisco and in no acute distress. Head/Face: Normocephalic, atraumatic. Eyes: Pupils equal round and reactive to light, extra-ocular motions intact. Lids and lashes normal. Conjunctiva and sclera are non-icteric and not injected. Cornea within normal limits. Periorbital areas with no swelling, redness, or edema. ENT: Nares patent. No nasal discharge, no septal abnormalities noted. Tympanic membranes are normal and external auditory canals are clear. Oropharynx with no redness, swelling, or masses, exudates, or evidence of obstruction, uvula midline. Mucous membranes moist. Neck: Trachea midline, no thyromegaly or masses palpated, and no cervical lymphadenopathy. Supple, full range of motion without nuchal rigidity, or vertebral point tenderness. No Meningismus. Chest/axilla: Normal chest wall appearance and motion. Nontender with no deformity. No lesions are appreciated. Cardiovascular: Regular rate and rhythm with a normal S1 and S2. No gallops, murmurs, or rubs. Normal PMI, no JVD. No pulse deficits. Respiratory: Lungs have equal breath sounds bilaterally, clear to auscultation and percussion. No rales, rhonchi or wheezes noted. No increased work of breathing, no retractions or nasal flaring. Abdomen/GI: Soft, non-tender, with normal bowel sounds. No distension or tympany. No guarding or rebound. No evidence of tenderness throughout. Back: No spinal tenderness. No costovertebral tenderness. Full range of motion. Skin: Warm, dry with normal turgor. Normal color with no rashes, no lesions, and no evidence of cellulitis. MS/ Extremity: Pulses equal, no cyanosis. Neurovascular intact. Full, normal range of motion. Neuro: Awake and alert, GCS 15, oriented to person, place, time, and situation. Cranial nerves II-XII grossly intact. Motor strength 5/5 in all extremities. Sensory grossly intact. Cerebellar exam normal. Normal gait. Psych: Awake, alert, with orientation to person, place and time. Behavior, mood, and affect are within normal limits. Vital Signs: 12:01 BP 145 / 85; Pulse 80; Resp 16; Temp 98.7; Pulse Ox 100% on R/A; Weight 95.25 kg; jl7 Height 5 ft. 2 in. ; Pain 8/10; 12:30 BP 125 / 70; Pulse 64; Resp 16; Pulse Ox 97% on 2 lpm NC; eh3 13:30 BP 110 / 56; Pulse 65; Resp 16; Pulse Ox 99% on R/A; eh3 14:30 BP 115 / 65; Pulse 67; Resp 16; Pulse Ox 99% on R/A; eh3 12:01 Body Mass Index 38.41 (95.25 kg, 157.48 cm) 7 12:01 Pain Scale: Adult jl7 [place] Coma Score: 15:27 Eye Response: spontaneous(4). Motor Response: obeys commands(6). Verbal Response: francisco oriented(5). Total: 15. MDM: 11:57 Patient medically screened. francisco 15:27 Differential diagnosis: cerebral abscess, cluster headache, cerebral vascular accident, francisco hypoglycemia, meningitis, migraine, neoplasm, subarachnoid bleed, subdural hematoma, temporal arteritis, tension headache, traumatic injuries, trigeminal neuralgia, vasomotor headache. Data reviewed: vital signs, nurses notes, lab test result(s), radiologic studies, CT scan. Consideration of Admission/Observation Escalation of care including admission/observation considered. I considered the following discharge prescriptions or medication management in the emergency department Medications were administered in the Emergency Department. See MAR. Test considered but Not performed: MRI: no mri brain. Care significantly affected by the following chronic conditions: asthma, migraine. Counseling: I had a detailed discussion with the patient and/or guardian regarding: the historical points, exam findings, and any diagnostic results supporting the discharge/admit diagnosis, lab results, radiology results, the need for outpatient follow up, for definitive care, a family practitioner, a neurologist. 12/11 11:59 Order name: CBC with Diff; Complete Time: 13:34 [facility] 12/11 11:59 Order name: Comprehensive Metabolic Panel; Complete Time: 13:34 [facility] 12/11 13:44 Order name: CT Head Brain wo Cont; Complete Time: 15:14 [facility] 12/11 13:44 Order name: CT Head Angio; Complete Time: 15:26 [facility] 12/11 11:59 Order name: Oxygen: 2 liters; Complete Time: 12:04 francisco Administered Medications: 12:35 Drug: NS 0.9% IV 1000 ml Route: IV; Rate: 1 bolus; Site: right antecubital; 3 14:00 Follow up: IV Status: Completed infusion; IV Intake: 1000ml 3 12:35 Drug: diphenhydrAMINE IVP 50 mg Route: IVP; Site: right antecubital; 3 13:30 Follow up: Response: No adverse reaction 3 12:35 Drug: metoCLOPramide IVP 10 mg Route: IVP; Site: right antecubital; 3 13:30 Follow up: Response: Nausea is decreased 3 12:35 Drug: Ketorolac IVP 30 mg Route: IVP; Site: right antecubital; 3 13:30 Follow up: Response: Pain is decreased 3 15:50 Drug: Aspirin PO Chewable Tablet 81 mg Route: PO; 3 15:58 Follow up: Response: Medication administered at discharge. [facility] Disposition Summary: 12/11/22 15:30 Discharge Ordered Location: Home francisco Problem: new francisco Symptoms: have improved francisco Condition: Stable francisco Diagnosis - Migraine with aura, not intractable, without status migrainosus francisco - Other headache syndrome francisco - Headache francisco - Nausea francisco - Tobacco abuse counseling francisco - Tobacco use francisco Followup: francisco - With: Private Physician - When: 2 - 3 days - Reason: Recheck today's complaints, Continuance of care, Re-evaluation by your physician Followup: francisco - With: - When: 2 - 3 days - Reason: Recheck today's complaints, Re-evaluation by your physician Discharge Instructions: - Discharge Summary Sheet francisco - Migraine Headache francisco - Nausea, Adult francisco - Steps to Quit Smoking francisco - Steps to Quit Smoking, [id number] francisco - Migraine Headache, [id number] francisco Forms: - Medication Reconciliation Form francisco - Thank You Letter francisco - Antibiotic Education francisco - Prescription Opioid Use francisco Prescriptions: - Zofran 4 mg Oral Tablet - take 1 tablet by ORAL route every 12 hours As needed; 20 tablet; Refills: 0, francisco Product Selection Permitted - Diclofenac Sodium 75 mg Oral tablet,delayed release (DR/EC) - take 1 tablet by ORAL route 2 times per day; 14 tablet; Refills: 0, Product francisco Selection Permitted Signatures: Dispatcher [employer] Joni Harris MD MD cha Mickail, Joel, PA PA jmm Leal, Jahala RN RN jl7 Paula Yepez RN RN eh3
--- NOTE | 2022-12-11 15:31 | ER ---
Nurse's Notes [facility] Name: Lola Rich Age: 42 yrs Sex: Female : 1980 Arrival Date: 12/11/2022 Time: 11:51 Bed 14 Private MD: Diagnosis: Migraine with aura, not intractable, without status migrainosus;Other headache syndrome;Headache;Nausea;Tobacco abuse counseling;Tobacco use Presentation: 12/11 12:01 Chief complaint: Patient states: Cough/congestion, SPENCER since . Cough in the jl7 mornings. No fevers. +nausea. Coronavirus screen: Vaccine status: Patient reports receiving the 2nd dose of the covid vaccine. Client denies travel out of the [place] in the last 14 days. congestion, cough unrelated to allergies, fatigue, headache. Ebola Screen: Patient denies travel to an Ebola-affected area in the 21 days before illness onset. Initial Sepsis Screen: Does the patient meet any 2 criteria? No. Patient's initial sepsis screen is negative. Does the patient have a suspected source of infection? Yes: Productive cough/pneumonia. Risk Assessment: Do you want to hurt yourself or someone else? Patient reports no desire to harm self or others. Onset of symptoms was December 07, 2022. 12:01 Method Of Arrival: Ambulatory 7 12:01 Acuity: TALHA 3 jl7 Triage Assessment: 12:01 Headache History: The patient has had previous headaches and this one is different than ll1 previous episodes. General: Appears uncomfortable, ill, Behavior is calm, cooperative, appropriate for age. Pain: Complains of pain in right eye and head. Neuro: Reports headache. GI: Reports nausea. 12:30 Pain: Pain currently is 8 out of 10 on a pain scale. Pain began 2-3 days ago. Also eh3 complains of nausea. 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 - Social history:: Smoking status: Patient reports the use of cigarette tobacco products, smokes one pack cigarettes per day. Screenin:30 [facility] ED Fall Risk Assessment (Adult) Score/Fall Risk Level 0 - 2 = Low Risk. Abuse eh3 screen: Denies threats or abuse. Denies injuries from another. Nutritional screening: No deficits noted. Tuberculosis screening: No symptoms or risk factors identified. Assessment: 12:30 General: Appears in no apparent distress. uncomfortable, Behavior is calm, cooperative, eh3 appropriate for age. Pain: Complains of pain in head. Neuro: Level of Consciousness is awake, alert, obeys commands, Oriented to person, place, time, situation. Neuro: Reports headache. Cardiovascular: Capillary refill < 3 seconds Patient's skin is warm and dry. Respiratory: Airway is patent Respiratory effort is even, unlabored, Respiratory pattern is regular, symmetrical. GI: Abdomen is round non-distended, Reports nausea. : No signs and/or symptoms were reported regarding the genitourinary system. EENT: No signs and/or symptoms were reported regarding the EENT system. Derm: Skin is pink, warm \T\ dry. Musculoskeletal: Circulation, motion, and sensation intact. Vital Signs: 12:01 BP 145 / 85; Pulse 80; Resp 16; Temp 98.7; Pulse Ox 100% on R/A; Weight 95.25 kg; jl7 Height 5 ft. 2 in. ; Pain 8/10; 12:30 BP 125 / 70; Pulse 64; Resp 16; Pulse Ox 97% on 2 lpm NC; eh3 13:30 BP 110 / 56; Pulse 65; Resp 16; Pulse Ox 99% on R/A; eh3 14:30 BP 115 / 65; Pulse 67; Resp 16; Pulse Ox 99% on R/A; eh3 12:01 Body Mass Index 38.41 (95.25 kg, 157.48 cm) jl7 12:01 Pain Scale: Adult jl7 [place] Coma Score: 15:27 Eye Response: spontaneous(4). Motor Response: obeys commands(6). Verbal Response: francisco oriented(5). Total: 15. ED Course: 11:53 Patient arrived in ED. rg4 11:57 Joni Kelly MD is Attending Physician. francisco 12:00 Arm band placed on Patient placed in an exam room, on a stretcher. jl7 12:03 Triage completed. jl7 12:04 Paula Yepez RN is Primary Nurse. eh3 12:30 Patient has correct armband on for positive identification. Bed in low position. Call eh3 light in reach. Side rails up X2. Pulse ox on. NIBP on. Door closed. Noise minimized. Lights dimmed. Warm blanket given. 12:30 Inserted saline lock: 20 gauge in right antecubital area, using aseptic technique. eh3 Blood collected. 14:02 CT Head Brain wo Cont In Process Unspecified. EDMS 14:06 CT Head Angio In Process Unspecified. EDMS 15:30 Jasen Arizmendi MD is Referral Physician. [facility] 15:45 No provider procedures requiring assistance completed. IV discontinued, intact, eh3 bleeding controlled, No redness/swelling at site. Pressure dressing applied. Administered Medications: 12:35 Drug: NS 0.9% IV 1000 ml Route: IV; Rate: 1 bolus; Site: right antecubital; eh3 14:00 Follow up: IV Status: Completed infusion; IV Intake: 1000ml eh3 12:35 Drug: diphenhydrAMINE IVP 50 mg Route: IVP; Site: right antecubital; eh3 13:30 Follow up: Response: No adverse reaction eh3 12:35 Drug: metoCLOPramide IVP 10 mg Route: IVP; Site: right antecubital; eh3 13:30 Follow up: Response: Nausea is decreased eh3 12:35 Drug: Ketorolac IVP 30 mg Route: IVP; Site: right antecubital; eh3 13:30 Follow up: Response: Pain is decreased eh3 15:50 Drug: Aspirin PO Chewable Tablet 81 mg Route: PO; eh3 15:58 Follow up: Response: Medication administered at discharge. eh3 Medication: 21:01 VIS not applicable for this client. eh3 Intake: 14:00 IV: 1000ml; Total: 1000ml. eh3 Outcome: 15:30 Discharge ordered by . francisco 15:58 Patient left the ED. eh3 15:58 Discharged to home ambulatory. eh3 15:58 Condition: stable 15:58 Discharge instructions given to patient, Instructed on discharge instructions, follow up and referral plans. medication usage, Demonstrated understanding of instructions, follow-up care, medications, Prescriptions given X 2. Signatures: Dispatcher [employer] Joni Harris MD MD cha Garcia, Rubi rg4 Allison Adhikari RN RN jl7 Kayleigh Glasgow RN RN ll1 Paula Yepez RN RN eh3 Corrections: (The following items were deleted from the chart) 21:03 12:30 Pain: Pain currently is 8 out of 10 on a pain scale. Pain began 4 hours ago. Also eh3 complains of no other associated symptoms. eh3 21:04 15:58 Discharge instructions given to patient, Instructed on discharge instructions, eh3 follow up and referral plans. Demonstrated understanding of instructions, follow-up care, medications, Prescriptions given X 1, eh3
[2022-12-11] MEDS ORDERED: ASPIRIN 81 MG CHEWABLE TABLET ONE (15:58)
[2022-12-11 16:27] VITALS: TEMP 98.7
[2022-12-11 16:31] VITALS: O2SAT 99
[2022-12-11 16:33] VITALS: BP 115/65
== END 2022-12-11 15:58 | disposition home or self-care (01) ==
LOC: ER 11:51
DX: G43.109 Migraine with aura, not intractable, without status migrainosus (principal); G44.89 Other headache syndrome; R11.0 Nausea; Z72.0 Tobacco use; Z71.6 Tobacco abuse counseling; Z88.6 Allergy status to analgesic agent
CPT/HCPCS: 96361; 85025; 36415; 80053; 70450; 70496; 96375; 96374; 99284; Q9967; J2765; J1200; J7030

== ENCOUNTER 2024-09-09 10:07 | Emergency (ER) | payer BC, SELFPAY ==
[2024-09-09 11:14] LABS: SARS-CoV-2 Antigen CONTROL BLUE LINE VIS/BG OK; SARS-CoV-2 Antigen Rapid Res Negative (Negative)
--- NOTE | 2024-09-09 12:00 | RAD REPORT ---
Procedure: Chest Pa And Lat (2 Views) HISTORY: Cough COMPARISON: 2020 FINDINGS: The lungs appear clear of acute infiltrate. No significant pleural effusion noted. The heart is normal size. IMPRESSION: No acute abnormality is displayed.
[2024-09-09] MEDS ORDERED: KETOROLAC 30 MG/ML INJ ONE (12:18)
--- NOTE | 2024-09-09 12:19 | ER ---
Nurse's Notes [facility] Name: Lola Rich Age: 44 yrs Sex: Female : 1980 Arrival Date: 09/09/2024 Time: 10:07 Bed 12 Private MD: Diagnosis: Influenza due to identified novel influenza A virus;Cough Presentation: 09/09 10:19 Chief complaint: Patient states: she has been having body aches, cough, "lung pain" ap3 since yesterday. Patient states her pain is currently rates her pain as a 7/10 on the pain scale. Coronavirus screen: Client presents with at least one sign or symptom that may indicate coronavirus-19. Ebola Screen: No symptoms or risks identified at this time. Initial Sepsis Screen: Does the patient meet any 2 criteria? No. Patient's initial sepsis screen is negative. Does the patient have a suspected source of infection? No. Patient's initial sepsis screen is negative. Risk Assessment: Do you want to hurt yourself or someone else? Patient reports no desire to harm self or others. Onset of symptoms was September 08, 2024. 10:19 Method Of Arrival: Ambulatory ap3 10:19 Acuity: TALHA 3 ap3 Triage Assessment: 10:21 General: Appears in no apparent distress. Behavior is calm, cooperative, appropriate ap3 for age. Pain: Complains of pain in generalized body aches Pain currently is 7 out of 10 on a pain scale. at worst was 10 out of 10 on a pain scale. Pain began 1 day ago. Neuro: Level of Consciousness is awake, alert, obeys commands, Oriented to person, place, time, situation, Appropriate for age Gait is steady, Speech is normal. Cardiovascular: Patient's skin is warm and dry. Respiratory: Reports shortness of breath cough that is Airway is patent Respiratory effort is even, unlabored, Respiratory pattern is regular, symmetrical, Onset: The symptoms/episode began/occurred yesterday, the patient has mild shortness of breath. 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 - Infectious Disease History:: Denies. - Social history:: Smoking status: Patient reports the use of cigarette tobacco products, smokes one-half pack cigarettes per day. Screenin:22 [facility] ED Fall Risk Assessment (Adult) History of falling in the last 3 months, ap3 including since admission No falls in past 3 months (0 pts) Confusion or Disorientation No (0 pts) Intoxicated or Sedated No (0 pts) Impaired Gait No (0 pts) Mobility Assist Device Used No (0 pt) Altered Elimination No (0 pt) Score/Fall Risk Level 0 - 2 = Low Risk Oriented to surroundings, Maintained a safe environment, Educated pt \\T\\ family on fall prevention, incl call for assistance when getting out of bed, Assessed \\T\\ reinforced patient's understanding of fall precautions, Hourly rounding (assess needs \\T\\ fall precautionary measures) done, Used ambulatory aids as needed (educated on \\T\\ assisted with), Used gait belt as appropriate. Abuse screen: Denies threats or abuse. Nutritional screening: No deficits noted. Tuberculosis screening: No symptoms or risk factors identified. Assessment: 11:22 General: Appears ill, Behavior is calm, cooperative. General: Reports feeling ill for ss fatigue for. Neuro: Level of Consciousness is awake, alert, obeys commands, Oriented to person, place, time, situation. Respiratory: Reports shortness of breath Airway is patent Respiratory effort is even, unlabored, Respiratory pattern is regular, symmetrical. EENT: Oral mucosa is moist. Derm: Skin is intact, is healthy with good turgor, Skin is pink, warm \\T\\ dry. normal. 11:26 Reassessment: Pt to XRAY now via wheelchair. 12:29 Cardiovascular: Rhythm is regular. Respiratory: Breath sounds with wheezes bilaterally. me1 Vital Signs: 10:19 BP 149 / 77; Pulse 87; Resp 18; Temp 99.1(O); Pulse Ox 97% on R/A; Weight 95.25 kg; ap3 Height 5 ft. 2 in. ; Pain 7/10; 12:23 BP 142 / 68; Pulse 84; Resp 17; Temp 98.6; Pulse Ox 98% ; me1 10:19 Body Mass Index 38.41 (95.25 kg, 157.48 cm) ap3 10:19 Pain Scale: Adult ap3 ED Course: 10:09 Patient arrived in ED. ra3 10:11 Brayden Cervantes DO is Attending Physician. ms3 10:20 Triage completed. ap3 10:23 Arm band placed on right wrist. ap3 10:23 No provider procedures requiring assistance completed. ap3 10:30 SARS RAPID Sent. bc6 10:30 Flu Sent. bc6 10:30 COVID swab sent to lab. Flu and/or RSV swab sent to lab. bc6 11:22 Safia Hardy, RN is Primary Nurse. ss 11:22 Patient has correct armband on for positive identification. ss 11:35 XRAY Chest Pa And Lat (2 Views) In Process Unspecified. EDMS 12:29 Provided Education on: POC. Verbalized understanding.. me1 12:29 Patient did not have IV access during this emergency room visit. me1 Administered Medications: 12:21 Drug: Ketorolac IM 15 mg IM once Route: IM; Site: right deltoid; me1 12:21 Follow up: Response: No adverse reaction me1 Medication: 10:23 VIS not applicable for this client. ap3 Outcome: 12:18 Discharge ordered by MD. ms3 12:29 Discharged to home ambulatory, with family, me1 12:29 Condition: stable 12:29 Discharge instructions given to patient, family, Instructed on discharge instructions, follow up and referral plans. medication usage, Demonstrated understanding of instructions, follow-up care, medications, Prescriptions given X 2, 12:30 Patient left the ED. me1 Signatures: Dispatcher [employer] EDMS Safia Hardy RN RN Katharina Marie RN RN ap3 Brayden Cervantes DO DO ms3 Sherry Saldana [facility] Kellen Hua RN RN me1 Aniya Light ra3
--- NOTE | 2024-09-09 12:19 | EDPHYS ---
Physician Documentation [facility] Name: Lola Rich Age: 44 yrs Sex: Female : 1980 Arrival Date: 09/09/2024 Time: 10:07 Bed 12 Private MD: ED Physician Brayden Cervantes HPI: 09/09 10:25 This 44 yrs old Female presents to ER via Ambulatory with complaints of ms3 Shortness Of Breath - Body aches, Cough. 10:25 Lola Rich is a 44-year-old female who presents to the Emergency Department with ms3 symptoms that began yesterday. She reports initially feeling under the weather, with symptoms worsening throughout the day, including body chills and aches. Last night, she experienced increased chills. This morning, she awoke with a severe cough and difficulty breathing, prompting her to seek medical attention. She reports feeling lightheaded but does not have any vomiting. There are no known sick contacts aside from her mother who is hospitalized for pneumonia. . [employer]: 12:29 LMP N/A - Post-menopause, Not me1 Historical: - Allergies: 10:20 ACETAMINOPHEN; ap3 - Home Meds: 10:20 None [Active]; ap3 - PMHx: 10:20 Asthma; Migraine; ap3 - Immunization history:: Client reports receiving the 2nd dose of the Covid vaccine, Flu vaccine is not up to date. - Infectious Disease History:: Denies. - Social history:: Smoking status: Patient reports the use of cigarette tobacco products, smokes one-half pack cigarettes per day. ROS: 10:25 Cardiovascular: Negative for chest pain, and palpitations. Abdomen/GI: Negative for ms3 abdominal pain, nausea, vomiting, diarrhea, and constipation, MS/Extremity: Negative for injury and deformity, 10:25 Constitutional: Positive for body aches, chills, 10:25 Respiratory: Positive for cough, shortness of breath, Exam: 10:25 Constitutional: This is a well developed, well nourished patient who is awake, alert, ms3 and in no acute distress. Cardiovascular: Regular rate and rhythm with a normal S1 and S2. No gallops, murmurs, or rubs. Normal PMI, no JVD. No pulse deficits. Respiratory: Lungs have equal breath sounds bilaterally, clear to auscultation and percussion. No rales, rhonchi or wheezes noted. No increased work of breathing, no retractions or nasal flaring. Abdomen/GI: Soft, non-tender, with normal bowel sounds. No distension or tympany. No guarding or rebound. No evidence of tenderness throughout. Skin: Warm, dry with normal turgor. Normal color with no rashes, no lesions, and no evidence of cellulitis. MS/ Extremity: Pulses equal, no cyanosis. Neurovascular intact. Full, normal range of motion. Vital Signs: 10:19 BP 149 / 77; Pulse 87; Resp 18; Temp 99.1(O); Pulse Ox 97% on R/A; Weight 95.25 kg; ap3 Height 5 ft. 2 in. ; Pain 7/10; 12:23 BP 142 / 68; Pulse 84; Resp 17; Temp 98.6; Pulse Ox 98% ; me1 10:19 Body Mass Index 38.41 (95.25 kg, 157.48 cm) ap3 10:19 Pain Scale: Adult ap3 MDM: 10:25 Medical Screening Exam initiated ms3 10:25 Differential diagnosis: pneumonia, Flu vs COVID. ms3 12:20 Data reviewed: vital signs, nurses notes, lab test result(s), radiologic studies, and ms3 as a result, I will discharge patient. I considered the following discharge prescriptions or medication management in the emergency department Medications were administered in the Emergency Department. See MAR. Independent interpretation of the following test(s) in the Emergency Department X-Ray: My interpretation is CXR image reviewed by me does not reveal PNA. Counseling: I had a detailed discussion with the patient and/or guardian regarding the historical points, exam findings, and any diagnostic results supporting the discharge/admit diagnosis, lab results, radiology results, the need for outpatient follow up, to return to the emergency department if symptoms worsen or persist or if there are any questions or concerns that arise at home. Special discussion: I discussed with the patient/guardian in detail that at this point there is no indication for admission to the hospital. It is understood, however, that if the symptoms persist or worsen the patient needs to return immediately for re-evaluation. ED course: Discussed negative flu, COVID, chest x-ray findings with the patient. Patient's and emergency department with influenza A being positive. Patient's symptoms consistent with influenza. Patient given prescription for Xofluza and Tessalon Perles. Patient to follow-up with PMD in 2 to 3 days. All questions were answered. Return precautions discussed include worsening symptoms, or any other concerns. On reevaluation patient is alert and oriented x 4, no apparent distress, nontoxic-appearing, ambulatory in the emergency department, speaking full sentences.. 09/09 10:18 Order name: Flu; Complete Time: 11:34 ms3 09/09 10:18 Order name: SARS RAPID; Complete Time: 11:34 ms3 09/09 11:20 Order name: XRAY Chest Pa And Lat (2 Views); Complete Time: 12:15 ap3 Administered Medications: 12:21 Drug: Ketorolac IM 15 mg IM once Route: IM; Site: right deltoid; me1 12:21 Follow up: Response: No adverse reaction me1 Disposition Summary: 09/09/24 12:18 Discharge Ordered Notes: Location: Home ms3 Condition: Stable ms3 Diagnosis - Influenza due to identified novel influenza A virus ms3 - Cough ms3 Followup: ms3 - With: Private Physician - When: 2 - 3 days - Reason: Recheck today's complaints Discharge Instructions: - Discharge Summary Sheet ms3 - Influenza, Adult ms3 - Cough, Adult ms3 Forms: - Medication Reconciliation Form ms3 - Antibiotic Education ms3 - Prescription Opioid Use ms3 - Patient Portal Instructions ms3 - Leadership Thank You Letter ms3 - Work release form me1 Prescriptions: - Xofluza 80 mg Oral tablet - take 1 tablet ORAL route once as a single dose; 1 tablet; Refills: 0, Product ms3 Selection Permitted - Tessalon Perles 100 mg Oral Capsule - take 1 capsule ORAL route every 8 hours As needed; 15 capsule; Refills: 0, ms3 Product Selection Permitted Signatures: Dispatcher [employer] Katharina Helton RN RN ap3 Brayden Cervantes DO DO ms3 Kellen Hua RN RN me1
[2024-09-09 16:06] VITALS: BP 142/68; TEMP 98.6; O2SAT 98
== END 2024-09-09 12:30 | disposition home or self-care (01) ==
LOC: ER 10:07
DX: J10.1 Influenza due to other identified influenza virus with other respiratory manifestations (principal); Z11.52 Encounter for screening for COVID-19; F17.210 Nicotine dependence, cigarettes, uncomplicated
CPT/HCPCS: 36415; 71046; 87804; 87811; 96372; 99284